=== PATIENT | male | born 1940 | race Caucasian/White ===

== ENCOUNTER 2022-12-08 13:31 | Outpatient (REF) | payer MEDICARE, SELFPAY ==
[2022-12-08 13:47] LABS: Appearance Urine Clear; Color Urine Yellow; Glucose Urine UA Negative (Negative); Leukocyte Esterase Urine Trace (Negative); Nitrite Urine Negative (Negative); UMIC TRIGGER UACC YES; Urine Blood Negative (Negative); Urine Ketones Negative (Negative); Urine Protein Trace mg/dL (Neg-Trace)
[2022-12-08 13:50] LABS: Bacteria Urine None Seen (None Seen); Hyaline Casts Urine 0-2 /LPF (0-2); Squamous Epithelial Cell Urine 0-2 /HPF (0-2); WBC Urine 0-5 /HPF (0-5)
== END 2022-12-08 13:32 | disposition home or self-care (01) ==
LOC: HO.HVNA 13:31
PROVIDERS: Visit Provider Internal Medicine
DX: R41.0 Disorientation, unspecified (principal); Z91.81 History of falling
CPT/HCPCS: 81001

== ENCOUNTER 2024-03-14 10:31 | Outpatient (REF) | payer MEDICARE, SELFPAY ==
--- NOTE | ~2024-03-14 | XR_ITS ---
EXAMINATION: XR CHEST CLINICAL INFORMATION: Ongoing cough. Decreased breath sounds at left lung base. COMPARISON: 11/21/2012 TECHNIQUE: 2 views of the chest were obtained. FINDINGS: The lungs are well expanded. The left hemidiaphragm is elevated. Mild central bronchial wall thickening. No focal consolidation. No pleural effusion. Cardiac silhouette is within normal limits. XR/XR chest 2V IMPRESSION: Possible bronchitis. Advise clinical correlation. Chronic elevation of the left hemidiaphragm.
== END 2024-03-14 10:32 | disposition home or self-care (01) ==
LOC: HO.HHCX 10:31
PROVIDERS: Visit Provider Student in an Organized Health Care Education/Training Program
DX: R05.3 Chronic cough (principal)
CPT/HCPCS: 71046

== ENCOUNTER 2024-12-28 09:53 | Outpatient (REF) | payer MEDICARE, SELFPAY ==
--- OUTSIDE RECORDS SUMMARY | 2024-12-28 10:34 | XMS_ITS | Encounter Summary ---
Author Organization [employer] Address [address] [facility] [address] [place] [address] Care Team Providers Care Muck Operator Name Role Phone Jodi Zuniga MD Primary Care Provide r Reason for Visit * Reason Onset Date Comments Nurse Triage 07/14/2023 Encounter Details Date Type Department Care Team (Late st Contact Info) Description 07/14/2023 Telephone [facility] MEDICINE [address] [place], [place] [phone] Jodi Zuniga MD [address] [place] [address] Nurse Triage Social History Tobacco Use Types Packs/Day Years Used Date Smoking Tobacco: Never Passive Smoke Exposure: Never Smokeless Tobacco: Never Depression Answer Date Recorded Patient Health Questionnaire-9 Score 0 03/17/2023 Depression Answer Date Recorded Patient Health Questionnaire-2 Score 0 03/17/2023 Sex and Gender Information Value Date Recorded Sex Assigned at Male 09/06/2022 10:18 AM EDT Legal Sex Male 10:18 AM EDT Gender Identity Male 09/06/2022 10:18 AM EDT Sexual Orientation Don't know 09/06/2022 10 :18 AM EDT documented as of this encounter Miscellaneous Notes * Telephone Encounter - Genesis Dunn RN - 07/14/2023 11:37 AM EDT Call to [facility] for second attempt triage call. No answer, LVM to return call to [facility] triage line. . * Telephone Encounter - Genesis Dunn RN - 07/14/2023 11:02 AM EDT Call returned to [facility] for triage. No answer LVM to return call to [facility] triage line [phone]. * Telephone Encounter - Lavinia Amezquita - 07/14/2023 10:48 AM EDT Symptom: Urine Symptoms Outcome: Schedule a same-day appointment or talk to a nurse or provider today Reason: Caller denied all higher acuity questions The caller accepted this outcome documented in this encounter Plan of Treatment Not on file documented as of this encounter Visit Diagnoses Not on filedocumented in this encounter Additional Health Concerns Assessment Noted Time PHQ-9 Depression Total Score: 0 03/17/20 23 3:07 PM EDT documented as of this encounter Care Teams Muck Operator Relationship Specialty Start Date End Date Jodi Zuniga MD [address] [place] [id number] PCP - General Family Medicine 06/04/19 documented as of this encounter
--- OUTSIDE RECORDS SUMMARY | 2024-12-28 10:34 | XMS_ITS | Clinical Summary ---
Author Organization [facility] Address [address] [place] [address] Phone Care Team Providers Care Report Checker Name Role Phone Jodi Zuniga MD Primary Care Provide r Allergies Active Allergy Reactions Criticality Noted Date Comments Mirtazapine 07/22/2022 ANXIETY Medications famotidine (PEPCID) 20 MG tablet Take 20 mg by mouth in the morning and 20 mg in the evening. Active citalopram (CeleXA) 20 MG tablet Take 20 mg by mouth 1 (one) time each day Active pravastatin (PRAVACHOL) 40 MG tablet Take 40 mg by mouth 1 (one) time each day Active isosorbide mononitrate (ISMO,MONOKET) 20 MG tablet Take 20 mg by mouth in the morning and 20 mg in the evening. Active folic acid (FOLVITE) 1 MG tablet Take 1 mg by mouth 1 (one) time each day Active aspirin (ST SHANTA) 81 MG EC tablet Take 81 mg by mouth 1 (one) time each day Active risperiDONE (RisperDAL) 0.5 MG tablet Take 0.5 mg by mouth in the morning and 0.5 mg in the evening. Active melatonin 3 MG tablet RICH 2 TABLETAS POR LA BOCA CADA RASHID A LA HORA DE DORMIR 3 Active cholecalciferol (VITAMIN D-3) 50 MCG (1999 UT) capsule RICH 1 CAPSULA POR LA BOCA CADA RASHID 3 Active Calcium-Vitamin D 500 MG tablet RICH 1 TABLETA POR LA BOCA JOSHUA VEZ AL RASHID 3 Active Multiple Vitamins-Mineral s (Multivitamin Adults 50+) tablet RICH 1 TABLETA POR LA BOCA CADA RASHID 3 Active traZODone (DESYREL) 50 MG tablet RICH 1/2 (MEDIA) TABLETA POR LA BOCA SACHIN VECES AL RASHID 3 Active levocetirizine (XYZAL) 5 MG tablet RICH 1 TABLETA POR LA BOCA CADA RASHID EN LA NOCHE 3 Active Active Problems Problem Noted Date Diagnosed Date Acute nontraumatic kidney injury 10/04/2022 Abdominal pain 10/04/2022 Hyperlipidemia 10/04/2022 Elevated prostate specific antigen (PSA) 022 Benign prostatic hyperplasia 10/04/2022 Overview (10/04/2022): associated with nocturia and has urinary frequency Stage 3a chronic kidney disease 10/04/2022 Immunizations Name Administration Dates Next Due Influenza, Unspecified 10/20/2022,2020,09/14/2019,10/19/2017 ,09/18/2015,07/23/2014 Pfizer SARS-COV-2 02/11/2021,01/21/2021 Pneumococcal Conjugate 13-Valent 05/19/2017 Pneumococcal Polysaccharide 02/07/2008 Tdap 05/19/2017 Zoster 05/19/2017 Family History Relation Status Comments Father Mother Social History Tobacco Use Types Packs/Day Years Used Date Smoking Tobacco: Former Cigarettes Tobacco Cessation:Counseling Given: Not Answered Alcohol Use Standard Drinks/Week Comments No 0 (1 standard drink = 0.6 oz pur e alcohol) Sex and Gender Information Value Date Recorded Sex Assigned at Not on file Legal Sex Male 10:08 AM EST Gender Identity Not on file Sexual Orientation Not on file Last Filed Vital Signs Vital Sign Reading Time Taken Comments Blood Pressure 113/62 07/26/2023 1:50 PM EDT Pulse 63 07/26/2023 1:50 PM EDT Temperature - - Respiratory Rate 16 12/02/2017 12:00 PM EST Oxygen Saturation 97% 07/26/2023 1:50 PM EDT Inhaled Oxygen Concentration - - Weight 72.6 kg (160 lb) 07/26/2023 1:50 PM EDT Height 167.6 cm (5' 6 ) 12/02/2017 12:00 PM EST Body Mass Index 25.82 12/02/2017 12:00 PM EST Plan of Treatment Health Maintenance Due Date Last Done Comments Influenza Vaccine (#1) 2024 2, 10/06/2021, 09/14/2019, Additional history exists Pneumococcal Vaccine: 65+ Years Completed 05/19/2017, 02/07/2008 Hepatitis B Vaccine Aged Out No longe r eligible based on patient's age to complete this topic Insurance DUAL SNP ([id number]) [place] [address] Care Teams Report Checker Relationship Specialty Start Date End Date Barciona Diallo, Michelle, MD [address] [place] [phone] PCP - General Internal Medicine 06/07/22
--- OUTSIDE RECORDS SUMMARY | 2024-12-28 10:34 | XMS_ITS | Encounter Summary ---
Author Organization [employer] Address [address] [facility] [address] [place] [address] Care Team Providers Care Technical Training Specialist Name Role Phone Jodi Zuniga MD Primary Care Provide r Reason for Visit * Reason Comments Med Refill Encounter Details Date Type Department Care Team ([facility] st Contact Info) Description 04/06/2023 Refill [facility] MEDICINE 230 [place], [place] [phone] Tamika Ya MD [address] [place], [place] [phone] Dementia with other behavioral disturbance, unspecified dementia severity, unspecified dementia type (CMS/HCC) Social History Tobacco Use Types Packs/Day Years [...] Don't know 09/06/2022 10 :18 AM EDT COVID-19 Exposure Response Date Recorded In the last 10 days, have yo u been in contact with someone who was confirmed or suspected to have Coronavirus/COVID-19? No / Unsure 03/17/2023 2:53 PM EDT documented as of this encounter Plan of Treatment Not on file documented as of this encounter Visit Diagnoses Diagnosis Dementia with other behavioral disturbance, unspecified dementia severity, unspecified dementia type (CMS/HCC) documented in this encounter Additional Health Concerns Assessment Noted Time PHQ-9 Depression Total Score: 0 03/17/20 23 3:07 PM EDT documented as of this encounter Care Teams Technical Training Specialist Relationship Specialty Start Date End Date Jodi Zuniga MD [address] [place] [address] PCP - General Family Medicine 06/04/19 documented as of this encounter
--- OUTSIDE RECORDS SUMMARY | 2024-12-28 10:34 | XMS_ITS | Encounter Summary ---
Author Organization [facility] Address [address] [place] [address] Phone Care Team Providers Care Tier Lift Operator Name Role Phone Jodi Zuniga MD Primary Care Provide r Encounter Details Date Type Department Care Team (Late st Contact Info) Description 10/04/2022 Documentation Only [facility], [address] [place] [address] Vivi Gar [address] [place] [phone] Social History Tobacco Use Types Packs/Day Years Used Date Smoking Tobacco: Former Cigarettes Alcohol Use Standard Drinks/Week Comments No 0 (1 standard drink = 0.6 oz pur e alcohol) Sex and Gender Information Value Date Recorded Sex Assigned at Not on file Legal Sex Male 10:08 AM EST Gender Identity Not on file Sexual Orientation Not on file documented as of this encounter Plan of Treatment Not on file documented as of this encounter Visit Diagnoses Not on filedocumented in this encounter Care Teams Tier Lift Operator Relationship Specialty Start Date End Date Jodi Zuniga MD [address] [place] [phone] PCP - General Internal Medicine 06/07/22 documented as of this encounter
--- OUTSIDE RECORDS SUMMARY | 2024-12-28 10:34 | XMS_ITS | Encounter Summary ---
Author Organization [email or web address] Address [address] [facility] 7t [place] [address] Care Team Providers Care Curator Of Photography And Prints Name Role Phone Jodi Zuniga MD Primary Care Provide r Reason for Visit * Reason Onset Date Comments Durable Medical Equipment 08/26/2023 Encounter Details Date Type Department Care Team (Late st Contact Info) Description 08/26/2023 Telephone [facility] MEDICINE [address] [place], [place] [phone] Jodi Zuniga MD [address] [place], [place] [phone] Durable Medical Equipment Social History Tobacco Use Types Packs/Day Years Used Date Smoking Tobacco: Never Passive Smoke Exposure: Never Smokeless Tobacco: Never Depression Answer Date Recorded Patient Health Questionnaire-9 Score 0 03/17/2023 Housing Stability Answer Date Recorded What is your housing situation today? I have janellshai garza 08/24/[address] you li ve. Do you have problems with any of the following? None of the above 08/24/2023 Food Insecurity Answer Date Recorded Within the past 12 months, y ou worried that your food would run out before you got money to buy more: Never True 08/24/2023 Within the past 12 months,th e food you bought just didn't last and you didn't have enough money to get more: Never True Transportation Answer Date Recorded In the past 12 months, has l ack of transportation kept you from medical appts, meetings, work or from getting things needed for daily living? No 08/24/2023 Utilities Answer Date Recorded In the past 12 months, has t he electric, gas, oil or water company threatened to shut off services in your home? No 08/24/2023 Depression Answer Date Recorded Patient Health Questionnaire-2 Score 0 03/17/2023 Sex and Gender Information Value Date Recorded Sex Assigned at Male 09/06/2022 10:18 AM EDT Legal Sex Male 10:18 AM EDT Gender Identity Male 09/06/2022 10:18 AM EDT Sexual Orientation Don't know 09/06/2022 10 :18 AM EDT documented as of this encounter Miscellaneous Notes * Telephone Encounter - Georgia Florian - 09/02/2023 10:44 AM EDT DME GENERATED WILL BE PLACED AT DESK FOR SIGNATURE. * Telephone Encounter - Georgia Florian - 08/30/2023 9:14 AM EDT READ MESSAGE BELOW PLEASE ADVICE. * Telephone Encounter - Danna Sloan - 08/26/2023 1:21 PM EDT Tc from Jose Roberto with [facility] requesting a script for ensures (vanilla) 3x a day will 12 refills to be faxed to [phone]. Any questions, contact Jose Roberto at [phone] ext [phone] documented in this encounter Plan of Treatment Not on file documented as of this encounter Visit Diagnoses Not on filedocumented in this encounter Additional Health Concerns Assessment Noted Time PHQ-9 Depression Total Score: 0 03/17/20 23 3:07 PM EDT documented as of this encounter Care Teams Curator Of Photography And Prints Relationship Specialty Start Date End Date Jodi Zuniga MD [address] [place] [address] PCP - General Family Medicine 06/04/19 documented as of this encounter
--- OUTSIDE RECORDS SUMMARY | 2024-12-28 10:34 | XMS_ITS | Encounter Summary ---
Author Organization [facility] Address [address] [place] [address] Phone Care Team Providers Care Security Assurance Analyst Name Role Phone Jodi Zuniga MD Primary Care Provide r Encounter Details Date Type Department Care Team (Late st Contact Info) Description 06/07/2022 Documentation Only [facility], [address] [place] [phone] Jodi Zuniga MD [address] [phone] Social History Tobacco Use Types Packs/Day Years Used Date Smoking Tobacco: Never Alcohol Use Standard Drinks/Week Comments No 0 [...] on filedocumented in this encounter Care Teams Security Assurance Analyst Relationship Specialty Start Date End Date Jodi Zuniga MD [address] [phone] PCP - General Internal Medicine 06/07/22 documented as of this encounter
--- OUTSIDE RECORDS SUMMARY | 2024-12-28 10:35 | XMS_ITS | Encounter Summary ---
Author Organization [employer] Address [address] [facility] 7t [place] [address] Care Team Providers Care Water Resources Project Manager Name Role Phone Jodi Zuniga MD Primary Care Provide r Reason for Visit * Reason Onset Date Comments Hospital Follow-up 09/26/2024 Encounter Details Date Type Department Care Team ([facility] st Contact Info) Description 09/26/2024 Telephone [facility] MEDICINE [address] [place], [place] [phone] Jodi Zuniga MD [address] [place], [place] [phone] Hospital Follow-up Social History Tobacco Use Types Packs/Day Years Used Date Smoking Tobacco: Never Passive Smoke Exposure: Never Smokeless Tobacco: Never Alcohol Use Standard Drinks/Week Comments Never 0 (1 standard drink = 0.6 oz pur e alcohol) Alcohol Answer Date Recorded Frequency of Alcohol Consumption Not on file 08/21/2024 Average Number of Drinks Not on file 024 Frequency of Binge Drinking Not on file 08/07 Score 0 08/21/2024 Depression Answer Date Recorded Patient Health Questionnaire-9 Score 0 08/21/2024 Patient Health Questionnaire-9 Score 0 08/21/2024 Last PHQ-9: Questionnaire Data Not on file 1 Housing Stability Answer Date Recorded What is your housing situation today? I have janell garza 08/24/[address] you li ve. Do you have problems with any of the following? None of the above 08/24/2023 Food Insecurity Answer Date Recorded Within the past 12 months, y ou worried that your food would run out before you got money to buy more: Sometimes True 2023 Within the past 12 months,th e food you bought just didn't last and you didn't have enough money to get more: Sometimes True 12/12/2023 Transportation Answer Date Recorded In the past [...] Date Recorded Patient Health Questionnaire-2 Score 0 08/21/2024 Sex and Gender Information Value Date Recorded Sex Assigned at Male 09/06/2022 10:18 AM EDT Legal Sex Male 10:18 AM EDT Gender Identity Male 09/06/2022 10:18 AM EDT Sexual Orientation Don't know 09/06/2022 10 :18 AM EDT documented as of this encounter Miscellaneous Notes * Telephone Encounter - Antonio Banks - 09/26/2024 3:00 PM EST Tc from pt requesting a HDF appt. Hospital: [facility] Date of admission: 09/21/24 Discharge date: 09/23/24 Diagnosed: Chest Pain *Send message to [place] Clinical Care Coordinators documented in this encounter Plan of Treatment Not on file documented as of this encounter Visit Diagnoses Not on filedocumented in this encounter Additional Health Concerns Assessment Noted Time PHQ-9 Depression Total Score: 0 08/21/20 9:30 AM EDT documented as of this encounter Care Teams Water Resources Project Manager Relationship Specialty Start Date End Date Jodi Zuniga MD [address] [place] [id number] PCP - General Family Medicine 06/04/19 documented as of this encounter
--- OUTSIDE RECORDS SUMMARY | 2024-12-28 10:35 | XMS_ITS | Encounter Summary ---
Author Organization [employer] Address [address] [facility] 7[address] [place] [address] Care Team Providers Care Rag Cutting Machine Tender Name Role Phone Jodi Zuniga MD Primary Care Provide r Reason for Visit * Reason Comments Med Refill Encounter Details Date Type Department Care Team ([facility] st Contact Info) Description 11/29/[address] [facility] MEDICINE [address] [place], [place] [phone] Jodi Zuniga MD [address] [place], [place] [phone] Low vitamin D level Social History Tobacco Use Types Packs/Day Years [...] AM EDT documented as of this encounter Plan of Treatment Not on file documented as of this encounter Visit Diagnoses Diagnosis Low vitamin D level documented in this encounter Additional Health Concerns Assessment Noted Time PHQ-9 Depression Total Score: 0 08/21/20 24 9:30 AM EDT documented as of this encounter Care Teams Rag Cutting Machine Tender Relationship Specialty Start Date End Date Jodi Zuniga MD [address] [place] [address] PCP - General Family Medicine 06/04/19 documented as of this encounter
--- OUTSIDE RECORDS SUMMARY | 2024-12-28 10:35 | XMS_ITS | Clinical Summary ---
Author Organization [employer] Address 75 [facility] 7t [place] [address] Care Team Providers Care Stitch Bonding Machine Tender Helper Name Role Phone Jodi Zuniga MD Primary Care Provide r Allergies Active Allergy Reactions Criticality Noted Date Comments Mirtazapine Anxiety Low 06/18/2015 Medications acyclovir (Zovirax) 5 % ointmentIndicatio ns:Low vitamin D level apply by topical route every 3 hours 6 times per day to the affected area(s) 30 g 3 12/02/19 23 Active clotrimazole (Lotrimin) 1 % creamIndications: Balanitis Apply topically 2 times daily. 45 g 05/30/20 23 Active Multiple Vitamins-Minerals (Multivitamin Adults 50+) tabletIndications :Coronary artery disease involving stillaguamish coronary artery of stillaguamish heart without angina pectoris RICH 1 TABLETA POR LA BOCA CADA RASHID 90 tablet 1 08/25/20 23 Active pantoprazole (ProtoNix) 40 MG EC tabletIndications :Lower GI bleeding Take 1 tablet (40 mg) by mouth before breakfast. 90 tablet 08/25/20 23 Active folic acid (Folvite) 1 MG tablet TAKE 1 TABLET BY ORAL ROUTE EVERY DAY 30 tablet 3 11/04/20 23 Active ipratropium (Atrovent) 17 MCG/ACT inhalerIndication s:Chronic cough Inhale 2 puffs in the morning, at noon, and at bedtime. 12.9 g 1 03/14/20 24 025 Active ALPRAZolam (Xanax) 2 MG tabletIndications :Generalized anxiety disorder RICH 1 TABLETA POR LA BOCA DOS VECES AL RASHID CUANDO SEA NECESARIO PARA EL SUENO/LA ANSIEDAD/ FALTA DE ALIENTO/RESP IRACION CORTA 56 tablet 08/21/20 24 Active traZODone (Desyrel) 50 MG tabletIndications :Dementia with other behavioral disturbance, unspecified dementia severity, unspecified dementia type (CMS/HCC) RICH 1/2 (MEDIA) TABLETA POR LA BOCA SACHIN VECES AL RASHID 45 tablet 2 08/27/20 24 Active melatonin 3 MG tabletIndications :Dementia with other behavioral disturbance, unspecified dementia severity, unspecified dementia type (CMS/HCC) RICH 2 TABLETAS POR LA BOCA A LA HORA DE DORMIR 60 tablet 3 09/20/20 24 Active aspirin 81 MG chewable tablet Chew 1 tablet Once per day. Active isosorbide mononitrate 10 MG tablet Take 1 tablet by mouth 2 times daily. Active citalopram (CeleXA) 20 MG tabletIndications :Major depressive disorder with current active episode, unspecified depression episode severity, unspecified whether recurrent TAKE 1 TABLET BY MOUTH EVERY MORING 30 tablet 5 10/30/20 24 Active cholecalciferol VITAMIN D (Vitamin D-3) 50 MCG (2000 UT) capsuleIndication s:Low vitamin D level TAKE 1 CAPSULE BY MOUTH EVERYDAY 30 capsule 5 10/30/20 24 Active tamsulosin (Flomax) 0.4 MG 24 hr capsule TAKE 1 CAPSULE BY MOUTH EVERY DAY 30 capsule 5 10/30/20 24 Active pravastatin (Pravachol) 40 MG tabletIndications :Mixed hyperlipidemia TAKE 1 TABLET BY MOUTH EVERY MORNING 90 tablet 1 11/22/19 25 Active Calcium+D3 500-10 MG-MCG tabletIndications :Low vitamin D level RICH 1 TABLETA POR LA BOCA CADA RASHID 90 tablet 1 11/29/19 25 Active risperiDONE (RisperDAL M-TAB) 1 MG disintegrating tabletIndications :Dementia with other behavioral disturbance, unspecified dementia severity, unspecified dementia type (CMS/HCC) DISOLVER 1 TABLETA DEBAJO DE LA LENGUA POR LA BOCA A LA HORA DE DORMIR 30 tablet 2 11/29/19 25 Active polycarbophil (FiberCon) 625 MG tabletIndications :Other constipation Take 1 tablet (625 mg) by mouth in the morning. 30 tablet 11 12/15/19 24 025 Calcium Carb-Cholecalcife rol (Calcium+D3) 500-10 MG-MCG tabletIndications :Low vitamin D level Take 1 tablet by mouth Once per day. TAKE 1 TABLET BY MOUTH EVERY DAY 90 tablet 1 05/07/20 24 025 Discontinued risperiDONE (RisperDAL M-TAB) 1 MG disintegrating tabletIndications :Dementia with other behavioral disturbance, unspecified dementia severity, unspecified dementia type (CMS/HCC) DISOLVER 1 TABLETA DEBAJO DE LA LENGUA POR LA BOCA A LA HORA DE DORMIR 30 tablet 2 08/27/20 24 025 Discontinued Active Problems Problem Noted Date Diagnosed Date Encounter for hearing evaluation 12/28/2024 Tremors of nervous system 12/28/2024 Bilateral leg pain 08/21/2024 Problems with swallowing 08/21/2024 Assessment & Plan (08/21/2024 10:54 AM EDT): I will order barium swallow and refer to speech and swallow Microaspiration can cause cough and even cause pneumonia Chronic cough 03/14/2024 Assessment & Plan (03/14/2024 1:24 PM EDT): Today here COVID/Flu/strep neg All meds Confirmed w daugther today Pt w chronic cough for at least 6 months ,seems unchanged per daughter From examination , pt has decrease breast sounds in left lung at base ,otherwise no other relevant findings Pt has hx of tobacco smoker and per chart hx of COPD Pt seems to have chronic bronchitis symptoms-COPD ,already received ATB so will hold on more for now -referred for CXR today -----reports came back this afternoon --The lungs are well expanded. The left hemidiaphragm is elevated. Mild central bronchial wall thickening. No focal consolidation. No pleural effusion. Cardiac silhouette is within normal limits. Possible bronchitis. Advise clinical correlation. Chronic elevation of the left hemidiaphragm. ---I tried calling number in system but no answer , request staff mine warfare officer to call daughter to inform of findings and to make sure pt f up w his PCP for noted reported as chronic elevated left hemidiaphragm to have that evaluated -referred today for PFT-to [facility] per daugther request -mucinex BID -trial w Atrovent -f PCP in 4 weeks to monitor symptoms ,tests referred today Long toenail 03/14/2024 Assessment & Plan (03/14/2024 1:21 PM EDT): Daughter request custom harvester referral for foot care and cut nails for long toenails -referred today Pruritus 12/15/2023 Dry cough 12/15/2023 Encounter for preventive health examination 06/2024 Assessment & Plan (12/15/2023 5:27 PM EST): See HPI Lower GI bleeding 05/30/2023 Hospital discharge follow-up 05/30/2023 Balanitis 05/30/2023 Other constipation 05/30/2023 Low vision 05/30/2023 Generalized abdominal pain 03/17/2023 Agitation due to dementia 03/17/2023 BPH with obstruction/lower urinary tract symptom s 03/17/2023 Benign prostatic hyperplasia with urinary freque ncy 03/17/2023 Chronic pain 03/17/2023 Coronary arteriosclerosis 03/17/2023 Dementia with behavioral disturbance 03/17/2023 Assessment & Plan (03/17/2023 4:47 PM EDT): Patient is being follow by neurology Family and patient guided about nature of his condition Forgetfulness 03/17/2023 Pain in eye 03/17/2023 Pain, joint, knee, left 03/17/2023 Stage 3b chronic kidney disease (CKD) 03/17/2023 Assessment & Plan (03/17/2023 4:47 PM EDT): Continue to follow with nephrology Iron deficiency anemia 03/17/2023 Assessment & Plan (03/17/2023 4:48 PM EDT): CBC will be check with labs Advanced directives, counseling/discussion 03/17 Assessment & Plan (03/17/2023 4:50 PM EDT): Today official for done, health care proxy wishes for patient to be full code, yes to CPR and intubation Bilateral cataracts 03/26/2019 Coronary artery disease invo lving stillaguamish coronary artery of stillaguamish heart without angina pectoris 03/26/2019 Seborrheic dermatitis 03/26/2019 BPH associated with nocturia 03/01/2019 Abnormal gait 02/09/2019 Assessment & Plan (08/21/2024 10:52 AM EDT): I will set up patient for VNA services for physical therapy at home Intention tremor 02/09/2019 Tubular adenoma of colon 01/20/2018 Chronic nonspecific colitis 11/25/2017 Chronic kidney disease 07/18/2017 Insomnia 07/18/2017 Neck pain 07/18/2017 Recurrent deep vein thrombosis 05/19/2017 Cervical spondylosis 05/06/2017 Chronic constipation 04/13/2017 Dizziness 04/13/2017 Recurrent major depressive episodes, moderate 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 Impairment of balance 03/15/2017 Incontinence of feces 02/28/2017 Aortic valve regurgitation 02/23/2017 Generalized anxiety disorder 02/23/2017 Assessment & Plan (08/21/2024 10:53 AM EDT): I explain to family patient should take alprazolam as prescribed, abstinence can be dangerous and affect patients mood/behavior and can even trigger seizures Hyperlipidemia 02/23/2017 Chronic obstructive lung disease 10/19/2012 Assessment & Plan (08/21/2024 10:51 AM EDT): Im going to refer patient to pulmonology for further evaluation Raised prostate specific antigen 10/19/2012 Encounters Date Type Department Care Team Description 12/28/2024 9:00 AM EST Office Visit [address] [address] Jodi Zuniga MD Problems with swallowing (Primary Dx); Dementia with behavioral disturbance (CMS/HCC); Encounter for hearing examination, unspecified whether abnormal findings; Abnormal gait; Tremors of nervous system 12/28/2024 Travel 12/20/[address] [address] Jodi Zuniga MD Chart Prep 12/13/2024 Patient Outreach [address] [address] Jodi Zuniga MD Pre-visit Planning ((Unable to reach for PVP screening, LVM)) 11/29/2024 Refill [facility] [address] [place] [address] Jodi Zuniga MD Low vitamin D level 11/29/2024 Refill [facility] [address] [place] [address] Jodi Zuniga MD Low vitamin D level; Dementia with other behavioral disturbance, unspecified dementia severity, unspecified dementia type (CMS/[facility]) 11/22/2024 Refill [facility] [address] [place] [address] Jodi Zuniga MD Mixed hyperlipidemia 11/12/2024 Telephone [facility] [address] [place] [address] Rickey Diamond DDS 11/06/2024 Telephone [facility] [address] [place] [address] Jodi Zuniga MD follow up needed 10/29/2024 Refill [facility] [address] [place] [address] Jodi Zuniga MD Major depressive disorder with current active episode, unspecified depression episode severity, unspecified whether recurrent; Low vitamin D level 10/11/2024 Orders Only [facility] [address] [place] [address] Provider, MD Yen from Last 3 Months Immunizations Name Administration Dates Next Due Influenza High-dose Quadrivalent Preservative Fr ee 10/20/2022 Influenza injectable quadriv alent IIV4 with preservative 10/19/2017,09/18/2015 Influenza injectable quadrivalent preservative f ree 12/15/2023,10/06/2021 Influenza, High Dose Seasonal, Preservative Free 08/21/2024,09/14/2019 Influenza, IIV3, injectable 07/23/2014 Influenza, Split (incl. purified surface antigen ) 08/22/2013 Pfizer Covid-19 Vaccine 12+ 08/21/2024, Pneumococcal Conjugate PCV 13 05/19/2017 Pneumococcal Polysaccharide PPSV23 02/07/2008 Tdap 05/19/2017 Zoster, live 05/19/2017 Social History Tobacco Use Types Packs/Day Years Used Date Smoking Tobacco: Never Passive Smoke Exposure: Never Smokeless Tobacco: Never Tobacco Cessation:Counseling Given: Not Answered Alcohol Use Standard Drinks/Week Comments Never 0 [...] Don't know 09/06/2022 10 :18 AM EDT Last Filed Vital Signs Vital Sign Reading Time Taken Comments Blood Pressure 127/72 12/28/2024 9:26 AM EST Pulse 77 12/28/2024 9:20 AM EST Temperature 35.9 ??C (96.6 ??F) 12/28/2024 9:20 AM ES T Respiratory Rate 20 12/28/2024 9:20 AM EST Oxygen Saturation 98% 12/28/2024 9:20 AM EST Inhaled Oxygen Concentration - - Weight 78.6 kg (173 lb 3.2 oz) 12/28/2024 9:20 A M EST Height 167.6 cm (5' 6 ) 12/28/2024 9:20 AM EST Body Mass Index 27.96 12/28/2024 9:20 AM EST Plan of Treatment Health Maintenance Due Date Last Done Comments Dental Prophylaxis 1940 Dental X-Ray: Bitewings 1940 Dental Oral Exam 01/31/2016 08/01/2015 RSV Patients and Patients Aged 60 years or older (1 - 1-dose 75+ series) 2017 Zoster Vaccines (2 of 3) 07/14/2017 05/19/2017 Dental X-Ray: Full Mouth 08/02/2018 08/01/2015 SDOH Screening 12/12/2024 12/12/2023 Alcohol/Substance Use Screening 08/21/2025 08/21/2024 Depression Screening 08/21/2025 08/21/2024, 08/21/20 Tobacco Screening 12/28/2025 12/28/2024 Lipid Panel 10/06/2026 10/06/2021 DTaP/Tdap/Td Vaccines (2 - Td or Tdap) 05/19/2027 05/19/2017 Pneumococcal Vaccine: 50+ Years Completed 05/19/2017, 02/07/2008 COVID-19 Vaccine Completed 08/21/2024, 06/2024, 02/11/2021, Additional history exists Influenza Vaccine Completed 08/21/2024, , 10/20/2022, Additional history exists HIB Vaccines Aged Out No longer eligi ble based on patient's age to complete this topic HPV Vaccines Aged Out No longer eligi ble based on patient's age to complete this topic Hepatitis A Vaccines Aged Out No long er eligible based on patient's age to complete this topic Hepatitis B Vaccines Aged Out No long er eligible based on patient's age to complete this topic IPV Vaccines Aged Out No longer eligi ble based on patient's age to complete this topic Meningococcal Vaccine Aged Out No ana slim eligible based on patient's age to complete this topic RSV under 20 months Aged Out No longe r eligible based on patient's age to complete this topic Rotavirus Vaccines Aged Out No longer eligible based on patient's age to complete this topic Procedures Procedure Name Priority Date/Time Associated Diagnosis Comments CT CHEST WO CONTRAST Routine 10/11/2024 1:57 PM EST LIPID PANEL, STANDARD Routine 10/06/2021 4:51 PM EST PANORAMIC RADIOGRAPHIC IMAGE Routine 08/01/2015 12:00 AM EDT COMPREHENSIVE ORAL EVALUATION - NEW OR ESTABLISHED PATIENT Routine 08/01/2015 12:00 AM EDT from Last 3 Months or Most Recently Relevant to Health Maintenance Results * CT Chest w/o Contrast (10/11/2024 1:57 PM EST) Anatomical Region Laterality Modality Body, Chest Computed Tomogra phy us Historical Provider MD [place] PROCEDURES Final R esult * LIPID PANEL, STANDARD (10/06/2021 4:51 PM EST) Chol/HDLC Ratio 2.7 <5.0 (calc) [facility] Cholesterol, Total 149 <200 mg/dL [facility] HDL Cholesterol 55 > OR = 40 mg/dL [facility] LDL Cholesterol 79 mg/dL (calc) [facility] Comment: Reference range: <100 ?? Desirable range <100 mg/dL for primary prevention; ?? <70 mg/dL for patients with CHD or diabetic patients ?? with > or = 2 CHD risk factors. ?? LDL-C is now calculated using the Jose Roberto ?? calculation, which is a validated novel method providing ?? better accuracy than the Friedewald equation in the ?? estimation of LDL-C. ?? Azeem CARD et al. LILIA. 2013;310(19): 7074-4214 ?? (http://Fixed [employer]/faq/AKI487) Non-HDL Cholesterol 94 <130 mg/dL (calc) [facility] Comment: For patients with diabetes plus 1 major ASCVD risk ?? factor, treating to a non-HDL-C goal of <100 mg/dL ?? (LDL-C of <70 mg/dL) is considered a therapeutic ?? option. Triglycerides 74 <150 mg/dL [facility] 10/06/2021 4:51 PM EST Jodi Diallo MD LAB BLOOD ORDERABLES Final Result [facility] [address] [place] [address], from Last 3 Months or Most Recently Relevant to Health Maintenance Insurance DENTAL - [facility] Advance Directives Documents on File Type Date Recorded Patient Carburetor Rebuilder Expl anation Advance Directives and Livin g Will 10/18/2023 Health Care Proxy Advance Directives and Livin g Will 10/14/2023 [facility] HealthCare Proxy 04/13/2023 Proxy Care Teams Stitch Bonding Machine Tender Helper Relationship Specialty Start Date End Date Jodi Zuniga MD [address] [place] [id number] PCP - General Family Medicine 06/04/19
--- OUTSIDE RECORDS SUMMARY | 2024-12-28 10:35 | XMS_ITS | Encounter Summary ---
Author Organization [employer] Address [address] [facility] 7t [place] [address] Care Team Providers Care Crm Dynamics Developer Name Role Phone Jodi Zuniga MD Primary Care Provide r Reason for Visit * Reason Comments Med Refill Encounter Details Date Type Department Care Team ([facility] st Contact Info) Description 11/29/2024 Refill [facility] [address] [place], [place] [phone] Jodi Zuniga MD [address] [place], [place] [phone] Low vitamin D level; Dementia with other [...] Visit Diagnoses Diagnosis Low vitamin D level Dementia with other behavioral disturbance, unspecified dementia severity, unspecified dementia type (CMS/HCC) documented in this encounter Additional Health Concerns Assessment Noted Time PHQ-9 Depression Total Score: 0 08/21/20 24 9:30 AM EDT documented as of this encounter Care Teams Crm Dynamics Developer Relationship Specialty Start Date End Date Jodi Zuniga MD [address] [place] [address] PCP - General Family Medicine 06/04/19 documented as of this encounter
--- OUTSIDE RECORDS SUMMARY | 2024-12-28 10:35 | XMS_ITS | Encounter Summary ---
Author Organization [employer] Address [address] [facility] 7t [place] [address] Care Team Providers Care School Lunch Manager Name Role Phone Jodi Zuniga MD Primary Care Provide r Reason for Visit * Reason Comments Pre-visit Planning (Unable to reach for PVP screening, LVM) Encounter Details Date Type Department Care Team ([facility] st Contact Info) Description 12/13/2024 Patient Outreach [facility] [address] [place], [place] [phone] Jodi Zuniga MD [address] [place], [place] [phone] Pre-visit Planning ((Unable to reach for PVP screening, LVM)) Social History Tobacco Use Types Packs/Day Years [...] AM EDT documented as of this encounter Progress Notes * Yesy Amezquita - 12/13/2024 2:22 PM EST CC Yesy. Placed outbound call to patient to complete pre-visit planning. No answer at this time. Patient name and were not confirmed. CC left voicemail requesting return call. Direct contact information provided. documented in this encounter Plan of Treatment Not on file documented as of this encounter Visit Diagnoses Not on filedocumented in this encounter Additional Health Concerns Assessment Noted Time PHQ-9 Depression Total Score: 0 08/21/20 24 9:30 AM EDT documented as of this encounter Care Teams School Lunch Manager Relationship Specialty Start Date End Date Jodi Zuniga MD [address] [place] [id number] PCP - General Family Medicine 06/04/19 documented as of this encounter
--- OUTSIDE RECORDS SUMMARY | 2024-12-28 10:35 | XMS_ITS | Encounter Summary ---
Author Organization [employer] Address [address] [facility] [address] [place] [address] Care Team Providers Care Piano Maker Name Role Phone Jodi Zuniga MD Primary Care Provide r Reason for Referral * Consultation (Routine) - Pending Review Specialty Diagnoses / Procedures Referred By Ludmila pena Referred To Contact Audiology Diagnoses Encounter for hearing examination, unspecified whether abnormal findings Jodi Zuniga MD [address] [place] [address] Phone: tel: fax: Referral ID Status Reason Start Date Expiration Date Visits Requested Visits Authorized [id number] Pending Review Specialty Services Required 12/28/2024 12/28/2025 1 1 * Imaging (Routine) - Pending Review Specialty Diagnoses / Procedures Referred By Ludmila pena Referred To Contact Radiology Diagnoses Problems with swallowing Dementia with behavioral disturbance (CMS/HCC) Procedures FL Esophagus Barium Swallow Jodi Zuniga MD [address] [place] [address] Phone: tel: fax: Referral ID Status Reason Start Date Expiration Date Visits Requested Visits Authorized [id number] Pending Review Perform Procedure 12/28/2024 12/28/2025 1 1 Encounter Details Date Type Department Care Team (Late st Contact Info) Description 12/28/2024 9:00 AM EST Office Visit [facility] [address] [place] [address] Jodi Zuniga MD [address] [place] [address] Problems with swallowing (Primary Dx); Dementia with behavioral disturbance (CMS/HCC); Encounter for hearing examination, unspecified whether abnormal findings; Abnormal gait; Tremors of nervous system Social History Tobacco Use Types Packs/Day Years [...] AM EDT documented as of this encounter Last Filed Vital Signs Vital Sign Reading [...] Mass Index 27.96 12/28/2024 9:20 AM EST documented in this encounter Plan of Treatment Scheduled Orders Name Type Priority Associated Diagnoses Orde r Schedule FL Esophagus Barium Swallow Imaging Routine Problems with swallowing Dementia with behavioral disturbance (CMS/HCC) Expected: 12/28/2024, Expires: 12/28/2025 Comprehensive Metabolic Panel Lab Routine Dementia with behavioral disturbance (CMS/HCC) Expected: 12/28/2024 (Approximate), Expires: 12/28/2025 CBC auto differential Lab Routine Dementia with behavioral disturbance (CMS/HCC) Expected: 12/28/2024 (Approximate), Expires: 12/28/2025 Lipid Panel, Standard Lab Routine Dementia with behavioral disturbance (CMS/HCC) Expected: 12/28/2024 (Approximate), Expires: 12/28/2025 Vitamin B12/Folate, Serum Panel Lab Routine Dementia with behavioral disturbance (CMS/HCC) Expected: 12/28/2024, Expires: 12/28/2025 TSH W/Reflex to FT4 Lab Routine Dementia with behavioral disturbance (CMS/HCC) Expected: 12/28/2024 (Approximate), Expires: 12/28/2025 Hemoglobin A1c Lab Routine Dementia with behavioral disturbance (CMS/HCC) Expected: 12/28/2024 (Approximate), Expires: 12/28/2025 Scheduled Referrals Name Type Priority Associated Diagnoses Orde r Schedule Referral to Audiology Outpatient Referral Routine Encounter for hearing examination, unspecified whether abnormal findings Expected: 12/28/2024 (Approximate), Expires: 12/28/2025 documented as of this encounter Visit Diagnoses Diagnosis Problems with swallowing- Primary Dysphagia, unspecified Dementia with behavioral disturbance ([facility]) Encounter for hearing examination, unspecified whether abnormal findings Abnormal gait Abnormality of gait Tremors of nervous system documented in this encounter Additional Health Concerns Assessment Noted Time PHQ-9 Depression Total Score: 0 08/21/20 24 9:30 AM EDT documented as of this encounter Care Teams Piano Maker Relationship Specialty Start Date End Date Jodi Zuniga MD [address] [place] [address] PCP - General Family Medicine 06/04/19 documented as of this encounter
--- OUTSIDE RECORDS SUMMARY | 2024-12-28 10:35 | XMS_ITS | Encounter Summary ---
Author Organization [employer] Address 75 [facility] 7t [place] [address] Care Team Providers Care Manager Dairy Name Role Phone Jodi Zuniga MD Primary Care Provide r Encounter Details Date Type Department Care Team (Late st Contact Info) Description 10/11/2024 Orders Only [facility] [address] [place] [address] Provider, MD Yen Social History Tobacco Use Types Packs/Day Years [...] on file documented as of this encounter Procedures Procedure Name Priority Date/Time Associated Diagnosis Comments CT CHEST WO CONTRAST Routine 10/11/2024 1:57 PM EST documented in this encounter Results * CT Chest w/o Contrast (10/11/2024 1:57 PM EST) Anatomical Region Laterality Modality Body, Chest Computed Tomogra phy us Historical Provider MD [place] PROCEDURES Final R esult documented in this encounter Visit Diagnoses Not on filedocumented in this encounter Additional Health Concerns Assessment Noted Time PHQ-9 Depression Total Score: 0 08/21/20 24 9:30 AM EDT documented as of this encounter Care Teams Manager Dairy Relationship Specialty Start Date End Date Jodi Zuniga MD [address] [place] [id number] PCP - General Family Medicine 06/04/19 documented as of this encounter
--- OUTSIDE RECORDS SUMMARY | 2024-12-28 10:35 | XMS_ITS | Encounter Summary ---
Author Organization [employer] Address 75 [facility] 7t [place] [address] Care Team Providers Care College Or University Business Manager Name Role Phone Jodi Zuniga MD Primary Care Provide r Encounter Details Date Type Department Care Team (Latest Contact Info) Description 12/28/2024 Travel Social History Tobacco Use Types Packs/Day Years [...] documented as of this encounter Care Teams College Or University Business Manager Relationship Specialty Start Date End Date Jodi Zuniga MD [address] [place] [id number] PCP - General Family Medicine 06/04/19 documented as of this encounter
--- OUTSIDE RECORDS SUMMARY | 2024-12-28 10:35 | XMS_ITS | Encounter Summary ---
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 Name Role Phone Jodi Zuniga MD Primary Care Provide r Reason for Visit * Reason Onset Date Comments Chart Prep 12/20/2024 Encounter Details Date Type Department Care Team ([facility] st Contact Info) Description 12/20/2024 Telephone [facility] [address] [place], [place] [phone] Jodi Zuniga MD [address] [place], [place] [phone] Chart Prep Social History Tobacco Use Types Packs/Day Years [...] encounter Miscellaneous Notes * Telephone Encounter - Andra Duckworth [place] - 12/20/2024 2:30 PM EST Chart Prep Labs: not done Images: done Vaccines due: yes Referrals: Pulmonology Date of service: 08/21/2024, ask patient if he went to [facility] Audiology Screenings: Up to date Overdue care gaps: SDOH, Oral Health documented in this encounter Plan of Treatment Not on file documented as of this encounter Visit Diagnoses Not on filedocumented in this encounter Additional Health Concerns Assessment Noted Time PHQ-9 Depression Total Score: 0 08/21/20 24 9:30 AM EDT documented as of this encounter Care Teams Boat Out[employer] Supervisor Relationship Specialty Start Date End Date Jodi Zuniga MD [address] [facility] [place] [address] PCP - General Family Medicine 06/04/19 documented as of this encounter
--- OUTSIDE RECORDS SUMMARY | 2024-12-28 10:35 | XMS_ITS | Data Portability ---
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 I provided real-time medical direction for this encounter and was immediately available to provide additional phone-based assistance as needed. 82M with mild cough x 2 days, no fever. Pt well appearing, no SOB, no chest pain, no fever, no sick contacts. Vitals stable, respiratory status normal. Pt appears adequately hydrated, no dehydration noted. Negative COVID/Flu. Recommend maintain oral hydration and OTC meds. Patient education and counseling, supportive care, and strict return precautions given. paysola Not available 02/04/2023 11:10:05 05/13/2023 05/13/2023 I have reviewed and agree with the assessment and plan as documented by the senior sales engineer. I provided real-time medical direction for this encounter and was immediately available to provide additional phone-based assistance as needed. 83M with 1 week of urinary symptoms, issue with med compliance. No fever, no flank pain. Vitals signs normal for patient. No findings on examination. U/A reveals negative nitrites and leukocytes. Discussion with family member, patient taking flomax as prescribed most days, but sometimes refuses (~2x/week). They will continue with gentle encouragement. Impression: Pt with urinary symptoms, no distress, non toxic in appearance. Suspect possible UTI, however with negative dip, will send for culture prior to initiating antibiotics. Plan: For urine culture Red flags and return precautions discussed. paysola Not available 05/13/2023 11:32:45 11/18/2023 11/18/2023 I have reviewed and agree with the assessment and plan as documented by the senior sales engineer. I provided real time medical direction for this encounter and was immediately available to provide additional phone based assistance as needed. History as noted by senior sales engineer. Pt with history of dementia, COPD, HTN, and ? GIB. Family called today reporting that pt has had a cough as well as 1 episode of diarrhea this AM. Pt reportedly developed a cough productive of clear/white sputum yesterday. This AM his cough seems improved after Nyquil. Director Of Counseling notes that the pt has not coughed at all while he has concha with the pt. Pt had 1 episode of diarrhea this AM in his brief. No melena or hematochezia. No vomiting. Pt eating and drinking ok but family notes decreased appetite. Pt briefly seemed more confused this AM, but currently at his baseline. No fevers or dyspnea. On exam, pt appears comfortable, not coughing, no distress. Vitals normal. Lungs clear. Abdomen soft, non tender. Rapid Covid and Flu negative. Impression: Pt with likely mild viral URI. Not currently coughing, no SOB or fever. Also with 1 episode of diarrhea in his brief this AM, no evidence of GIB. No vomiting. MS at baseline. Covid and Flu both negative today. Family is told that it pt has viral URI. They will encourage normal po food and fluid intake and are instructed to f/u with pt's primary care team if his symptoms aren't improving or are worsening. Pt's family instructed to seek medical attention right away with any worsening or new symptoms, which are reviewed with them. [email or web address] Not available 11/18/2023 12:26:06 Plan of Treatment Reminders Order Date Submit Date Provider Last Modified By Organization Details Last Modified Time Details Appointments None recorded. Lab rapid flu (A+B) [address] [facility], [address] [place] [address], [place], [phone], 4 12:25:53 rapid SARS CoV 2 Ag, QL IA, respiratory specimen 2023 024 [facility], [address] [place] [address], [id number], 4 12:25:54 rapid strep group A, throat 2023 024 [facility], [address] [place] [address], [id number], 4 12:25:56 rapid flu (A+B) 2023 024 [facility], [address] [place] [address], [id number], 4 12:12:39 rapid SARS CoV 2 Ag, QL IA, respiratory specimen 2023 024 [facility], [address] [place] [address], [id number], 4 12:12:37 culture, urine 2022 023 [facility], [address] [place] [address], [id number], 3 11:26:23 urinalysis, dipstick 2022 023 [facility], [address] [place] [address], [id number], 3 11:34:51 Referral None recorded. Procedures None recorded. Surgeries None recorded. Imaging electrocard iogram 2023 024 [facility], [address] [place] [address], [id number], 4 13:48:11 Medication Orders Flonase Allergy Relief 50 mcg/actuati on nasal spray,suspe nsion 2023 024 [facility] [place], [address], 4 16:33:49 Mucinex 600 mg tablet, extended release 2023 024 [facility], [address] [place], [address], 4 15:03:54 azithromyci n 250 mg tablet 2023 024 [facility], [address] [place], [address], 4 12:37:15 azithromyci n 250 mg tablet 2023 024 [facility], [address] [place], [address], 16:38:06 Patient TargetsNo targets recorded. Patient InstructionsNo instructions recorded. Reason for Referral None Reported. Results Created Date Observation Date Name Description Value Unit Range Abnormal Flag Note LastModifiedBy Organization Detail LastModifiedTime 05/13/2005/13/2023 URINE CULTU RE specimen description URINE Not Available [facility] [address] [place], [address], 05/14/2023 11:26:23 05/13/2005/13/2023 URINE CULTU RE special requests NONE Not Available [facility] [address] [place], [address], 05/14/2023 11:26:23 05/13/2005/14/2023 URINE CULTU RE culture <10,00 0 COL/ML abnormal Not Available [facility] [address] [place], [address], 05/14/2023 11:26:23 05/13/2005/14/2023 URINE CULTU RE report status FINAL 2022 Not Available [facility] [address] [place], [address], 05/14/2023 11:26:23 05/13/2005/13/2023 urina lysis , dipst ick Leukocytes negati ve Not Available [facility] [address] [place] [address], [place], [address], 05/13/2023 11:29:56 05/13/20 23 05/13/2023 urina lysis , dipst ick Nitrite negati ve Not Available Main - [facility] ed [address] [place] [address], [phone], 05/13/2023 11:29:56 05/13/20 23 05/13/2023 urina lysis , dipst ick Protein positi ve Not Available Main - [facility] ed [address] [place] [address], [phone], 05/13/2023 11:29:56 11/18/19 24 11/18/2023 rapid SARS CoV 2 Ag, QL IA, respi rator y speci men rapid SARS CoV 2 Ag, QL IA, respiratory specimen negati ve Not Available [facility] - [facility] ed [address] [place] [address], [phone], 11/18/2023 12:11:27 11/18/19 24 11/18/2023 rapid flu (A+B) Flu negati ve Not Available [facility] - [facility] ed [address] [place] [address], [phone], 11/18/2023 12:11:25 03/01/20 24 03/01/2024 rapid strep group A, throa t Strep negati ve Not Available [facility] - [facility] ed [address] [place] [address], [phone], 03/01/2024 12:25:21 03/01/20 24 03/01/2024 rapid SARS CoV 2 Ag, QL IA, respi rator y speci men rapid SARS CoV 2 Ag, QL IA, respiratory specimen negati ve Not Available [facility] ed [address] [place] [address], [phone], 03/01/2024 12:25:16 03/01/20 24 03/01/2024 rapid flu (A+B) Flu negati ve Not Available [facility] ed [address] [place] [address], [phone], 03/01/2024 12:25:11 03/01/20 24 03/01/2024 carlos dennis am No observ ation record ed. [address], [phone], 03/01/2024 13:48:09 Result Notes None recorded. Procedures Surgical History None recorded. Imaging Results Imaging Date Name Status LastModified by Organization Details LastModified Time 03/01/2024 electrocardiogram completed [address], [id number], 03/01/2024 13:48:09 Procedure Notes None recorded. Medical Equipment None Reported. Medications Name Sig Start Date Stop Date Status Note LastModified by Organization Details LastModified Time calcium+d3 500-10 mg-mcg ta RICH 1 TABLETA POR LA BOCA CADA RASHID active Not Available Not Available No t Available multivitamin adults 50+ tab RICH 1 TABLETA POR LA BOCA CADA RASHID active Not Available Not Available No t Available calcium 500-vit d3 400 tab RICH 1 TABLETA POR LA BOCA JOSHUA VEZ AL RASHID active Not Available Not Available N ot Available vitamin d3 2,000 unit softg RICH 1 CAPSULA POR LA BOCA CADA RASHID active Not Available Not Available No t Available trazodone 50 mg tablet RICH 1/2 (MEDIA) TABLETA POR LA BOCA SACHIN VECES AL RASHID active Not Available Not Available No t Available azithromycin 250 mg tablet RICH 1 TABLETA POR LA BOCA CADA RASHID POR 4 MATIAS active Not Available Not Available N ot Available pravastatin 40 mg tablet RICH 1 TABLETA POR LA BOCA CADA MANANA active Not Available Not Available Not Available isosorbide mononitrate 20 mg tablet RICH 1 TABLETA POR LA BOCA SI TIENE [facility] IND[facility] active Not Available Not Available No t Available citalopram 10 mg tablet RICH 1 TABLETA POR LA BOCA CADA RASHID active Not Available Not Available No t Available meclizine 12.5 mg tablet RICH 2 TABLETAS POR LA BOCA DOS VECES AL RASHID CUANDO SEA NECESARIO active Not Available Not Available No t Available melatonin 3 mg tablet RICH 2 TABLETAS POR LA BOCA CADA RASHID A LA HORA DE DORMIR active Not Available Not Available No t Available citalopram 20 mg tablet RICH 1 TABLETA POR LA BOCA CADA RASHID EN LA MANANA active Not Available Not Available No t Available famotidine 20 mg tablet RICH 1 TABLETA POR LA BOCA DOS VECES AL RASHID active Not Available Not Available No t Available tamsulosin 0.4 mg capsule RICH 1 CAPSULA POR LA BOCA CADA RASHID, MEDIA HORA DESPUES DE LA MISMA COMIDA CADA RASHID active Not Available Not Available No t Available pantoprazole 40 mg tablet,delay ed release RICH 1 TABLETA POR LA BOCA ANTES DEL DESAYUNO active Not Available Not Available No t Available acyclovir 5 % topical ointment APLICAR EN EL AREA AFECTADA DE LA PIEL CADA 3 HORAS (6 VECES AL RASHID) HOSSEIN INDICADO active Not Available Not Available No t Available docusate sodium 100 mg capsule RICH 1 CAPSULA POR LA BOCA DOS VECES AL RASHID POR 10 MATIAS active Not Available Not Available No t Available aspirin 81 mg chewable tablet MASTICAR 1 TABLETA CADA RASHID active Not Available Not Available No t Available folic acid 1 mg tablet RICH 1 TABLETA POR LA BOCA CADA RASHID active Not Available Not Available No t Available hydroxyzine HCl 25 mg tablet RICH 1 TABLETA POR LA BOCA CADA RASHID A LA HORA DE DORMIR CUANDO SEA NECESARIO PARA PICOR active Not Available Not Available N ot Available alprazolam 2 mg tablet RICH 1 TABLETA POR LA BOCA DOS VECES AL RASHID CUANDO SEA NECESARIO PARAEL SUENO/LA ANSIEDAD/ FALTA DE ALIENTO/RES PIRACION CORTA active Not Available Not Available No t Available oxybutynin chloride 5 mg tablet RICH 1/2 (MEDIA) TABLETA POR LA BOCA JOSHUA VEZ AL RASHID active Not Available Not Available N ot Available fluticasone propionate 50 mcg/actuatio n nasal spray,suspen phuong USAR 1 ROCIADA EN CADA FOSA NASAL JOSHUA VEZ AL RASHID active Not Available Not Available N ot Available clotrimazole 1 % topical cream APLICAR A LA PIEL AL AREA AFECTADA DOS VECES AL RASHID active Not Available Not Available No t Available risperidone 0.5 mg tablet RICH 1 TABLETA POR LA BOCA DOS VECES AL RASHID active Not Available Not Available No t Available risperidone 1 mg disintegrati ng tablet DISOLVER 1 TABLETA POR LA BOCA A LA HORA DE DORMIR active Not Available Not Available No t Available Atrovent HFA 17 mcg/actuatio n aerosol inhaler INHALE 2 PUFFS BY MOUTH THREE TIMES DAILY IN THE MORNING, AT NOON, AND AT BEDTIME active Not Available Not Available N ot Available mometasone 0.1 % topical solution APLICAR SACHIN GOTAS A LA PIEL DEL AREA AFECTADA CADA RASHID active Not Available Not Available No t Available calcium 500 mg (as carbonate)-v itamin D3 10 mcg (400 unit) tablet active Not Available Not Available Not Available levocetirizi ne 5 mg tablet RICH 1 TABLETA POR LA BOCA CADA RASHID EN LA NOCHE active Not Available Not Available No t Available Fiber (calcium polycarbophi l) 625 mg tablet RICH 1 TABLETA POR LA BOCA CADA MANANA active Not Available Not Available Not Available diclofenac 1 % topical gel APLICAR 2 GM TOPICALMENT E EN EL AREA AFECTADA DOS VECES AL RASHID active Not Available Not Available No t Available cholecalcife rol (vitamin D3) 50 mcg (2,000 unit) capsule RICH 1 CAPSULA POR LA BOCA CADA RASHID active Not Available Not Available No t Available Mucus Relief ER 600 mg tablet, extended release TAKE 1 TABLET BY MOUTH TWICE DAILY FOR 7 DAYS DO NOT BREAK, CRUSH, DISSOLVE OR CHEW active Not Available Not Available No t Available Adults 50 Plus 0.4 mg-300 mcg-250 mcg tablet active Not Available Not Available Not Available Vitals Date Recorded Body weight Body temperature Body height Heart rate Oxygen saturation Oxygen saturation in Arterial blood by Pulse oximetry Respiratory rate Systolic blood pressure Diastolic blood pressure Provider Name and Address Organization Details Last Updated DateTime 3 90451.0 72 g 98.2 [degF] 170.18 cm 76 /min 97 % 97 % 16 /min 109 mm[Hg] 64 mm[Hg] Not Available [facility] 3 11:25:40 Date Recorded Respiratory rate Heart rate Body weight Body temperature Oxygen saturation Oxygen saturation in Arterial blood by Pulse oximetry Systolic blood pressure Diastolic blood pressure Provider Name and Address Organization Details Last Updated DateTime 4 18 /min 86 /min 22638.6 4 g 98.9 [degF] 99 % 99 % 104 mm[Hg] 58 mm[Hg] Not Available [facility] 4 12:05:09 Date Recorded Oxygen saturation Oxygen saturation in Arterial blood by Pulse oximetry Respiratory rate Body temperature Heart rate Systolic blood pressure Diastolic blood pressure Provider Name and Address Organization Details Last Updated DateTime 4 97 % 97 % 18 /min 97.9 [degF] 65 /min 132 mm[Hg] 58 mm[Hg] Not Available [facility] 4 12:22:32 Date Recorded Body temperature Oxygen saturation Oxygen saturation in Arterial blood by Pulse oximetry Body weight Heart rate Respiratory rate Systolic blood pressure Diastolic blood pressure Provider Name and Address Organization Details Last Updated DateTime 3 96.6 [degF] 98 % 98 % 89182.6 g 80 /min 14 /min 117 mm[Hg] 63 mm[Hg] Not Available [facility] 3 11:07:06 Social History None recorded. Functional Status None recorded. Mental Status None recorded. Family History Nothing Reported. Medical History No medical history recorded. Past Encounters Encounter ID Performer Location Encounter Start Date Encounter Closed Date Diagnosis/Indication Diagnosis SNOMED-CT Code Diagnosis ICD10 Code Diagnosis Note [id number] Nikky Beckett MD [facility] [address] [place] [phone] 02/04/2023 11:07:03 02/07/2023 12:12:08 Viral upper respiratory tract infection 412529562 J06.9 [id number] Nikky Beckett MD [facility] [address] [place] [phone] 05/13/2023 11:25:31 05/16/2023 12:04:12 Urinary symptoms 393598433 R39.9 [id number] Alex José MD [facility] [address] [place] [phone] 11/18/2023 12:05:06 11/21/2023 17:19:55 Viral upper respiratory tract infection 117572376 J06.9 [id number] BEL GAINES MD [facility] [address] [place] [phone] 03/01/2024 12:22:30 03/01/2024 18:27:19 Respiratory tract congestion and cough 662408816 R05.9 Evaluation in the field was performed by my senior sales engineer colleague, as noted above, I provided real-time direction and supervisio n for this visit. The evaluation revealed 83 yr old male Maldivian speaking, PMH dementia but can express himself / HTN/ with c/o URI symptoms for a couple of weeks. Pt reports a cough, congested, and yellow sputum. Also reports sore throat but denies SOB, chills, fever, myalgia. Pt report nausea but no vomiting. He can eat and drink. He has not taken anything OTC. Denies Hx of COPD/Asthm a /HF VSS: RR 18, SpO2 97 %, afebrile Exam with clear lungs, no MEREDITH, ongoing cough with yellow thick sputum Covid / Flu and rapid strep negative . Impression :URI with cough Plan:-Azit hromycin x5 days - first dose given by the senior sales engineer- Flonase nasal to help with postnasal drip sent to his pharmacy-M ucinex BID to help loosen up the secretions -Advised to drink plenty of fluids-Gar gle with sale tand water, tea with honey-Red flags discussed with the patient Primary care, consider__ _ Dispositio n: We discussed the diagnostic uncertaint y of home visits and the risk associated with this. In this case, the patient and I felt this to be an acceptable and reasonable amount of risk given the benefit of avoiding an ED visit. We discussed the need to seek care urgently/e mergently in the setting of any new or worsening serious symptoms, particular ly fever, chills, SOB, CP, vomiting, diarrhea , weakness or any other concerns. Health Concerns Section Related Observation LastModified by Organization Detai ls LastModified Time None Recorded Concern Status LastModified by Organization Details LastModified Time None Recorded Advance Directives Directive None Recorded Payers Encounter Date Sequence Insurance Name Policy Number Policy Clayton Covered Member ID Clayton Member ID Guarantor Name 02/04/2023 1 [facility] - DOS PRIOR TO 2023 - DUAL ELIGIBLE (MEDICARE REPLACEMENT/ADV ANTAGE - HMO) Gray Sahu [id number] Gray Sahu 05/13/2023 1 [facility] - DOS ON OR AFTER 2023 - DUAL ELIGIBLE - FDC OPTIONS AND ONE CARE (MEDICARE REPLACEMENT/ADV ANTAGE - HMO) Gray Sahu [id number] Gray Sahu 11/18/2023 1 [facility] - DOS ON OR AFTER 2023 - DUAL ELIGIBLE - FDC OPTIONS AND ONE CARE (MEDICARE REPLACEMENT/ADV ANTAGE - HMO) Gray Luis Alberto [id number] Gray Luis Alberto 03/01/2024 1 [facility] [place] - DOS ON OR AFTER 2023 - DUAL ELIGIBLE - FDC OPTIONS AND ONE CARE (MEDICARE REPLACEMENT/ADV ANTAGE - HMO) Gray Luis Alberto [id number] Gray Luis Alberto Notes Date Note Type Note Provider Name and Address Organization Details Recorded Time 02/04/2023 text/html HPI: Dry Cough,body ache, slight fever ................... ................... ................... ................... ................... ................... ................... ........ [facility] Nursing Assessment: Patient Reports: Cough, fever greater than 2 days Chief Complaints: Cough PMH: Severe Dementia Allergies: No Known Comments: Daughter calling on behalf of member with request for [facility] visit for eval of cough and body aches x 2 days deny fevers attempt OTC's with fair effect Verify member name/- Nikky Beckett MD [address] [place] [address],[address], [place], [phone], [facility] 02/04/2023 11:10:11 05/13/2023 text/html HPI: HX: BPH, COPD, CAD, CKD. Patient reports to Daughter that he feels unwell. Painful urination x 1 week. No blood or pus with good water intake. No fever. Daughter reports patient picks and chooses what meds he takes. Please address use and availability of flomax as ordered ................... ................... ................... ................... ................... ................... ................... ........ CRC Nursing Assessment: Comments: CRC RN did not require any additional information to process this visit. ................... ................... ................... ................... ................... ................... ................... ........ Director Of Counseling Note From Jerry Yeung: Mobile health call for male patient with burning on urination . Arrived to home where patient was found with ELECTRIC POWERLINE EXAMINER. Pt presents alert and oriented , ambulating well without difficulty. Pt reports approximatelv 2 weeks of burning with urination, in addition to some urgency. ELECTRIC POWERLINE EXAMINER stated that patient has been refusing to take his medications sometimes and with his bipolar disorder they have had to pick their battles with him. At time of assessment pt still had not taken his morning medications. Spoke with pt's daughter by phone who confirmed information provided during assessment. Vital signs taken as listed, and unconcerning. Pt afebrile. Pt was able to provide urine specimen. Urine dip analysis in the home suggests some protein in urine in addition to possibly trace amounts of blood . Picture taken and uploaded to [facility] physician for review . Consulted with Dr Rubens Beckett. [facility] [place] [place] ordered urine culture send out, and reviewed red flags for patient to be seen at ED. Stressed importance of following regimen for prescribed medications . Reviewed red flags with ELECTRIC POWERLINE EXAMINER and pt and informed them they would be contacted with results from urine culture. Patient education provided. [facility] [place] [place] Lab Orders: culture, urine: Performed urinalysis, dipstick: Performed ................... ................... ................... ................... ................... ................... ................... ........ Disposition: Fulfilled Nikky Beckett MD [address] [place] [address],[address], [place], [phone], [facility] 05/13/2023 15:53:31 11/18/2023 text/html This was a supervised home visit with senior sales engineer Cale Melendrez. CRC Nurse Triage Notes (Pearl Peterson): Reason For Request: Pt's daughter reporting diarrhea, NO fever, confusion, lots of coughing>able to spit up the phlegm>no chest pain or SOB to report>was given nyquil last night. Chief Complaints: Cough, URI PMH: Severe Dementia, Heart Disease, Hypertension, COPD/Asthma Allergies: No Known Comments: Verified / address Member has had loose stool since yesterday. Member does have dementia but has new episodes of confusion. Member does not want to eat today, has not taken his medication today. Member is coughing up congestion , unsure the color. Member was given nyquil last evening. Member is not having sob/ chest pain . ................... ................... ................... ................... ................... ................... ................... ........ Director Of Counseling Note From Cale Melendrez: Pt co diarrhea and cough with white sputum, that started this morning. NyQuil given for cough with relief. Pt denies nausea vomiting fever or headache or abdominal pain. Pt loss of appetite but able to eat and fluid intake. Covid flu swab negative. Baseline vitals assessed. [facility] contacted and advised self care and monitor symptoms. Family education on signs indicating the ER. ................... ................... ................... ................... ................... ................... ................... ........ Disposition: Fulfilled Alex José MD [address] [place] [address],[address], [place], [phone], [facility] 11/18/2023 12:26:21 03/01/2024 text/html CRC Nurse Triage Notes (Pearl Peterson): Reason For Request: Pt's daughter reporting throat pain>cough>difficul ty swallowing>congesti on>symptoms going on at least a few weeks Chief Complaints: URI PMH: Severe Dementia, Heart Disease, Hypertension, COPD/Asthma Allergies: No Known Comments: The radio script writer verified the member's name//address, and phone number. The member is a a 83 yr old male kenyan speaking , PMH dementia but can express himself / HTN/ Member calling with c/o URI symptoms for a couple of weeks. Member has had a cough, congested, and yellow sputum. Member has chills not fever. The member has pain in his throat but denies any body aches. He has nausea but no vomiting. He can eat and drink. He has not taken anything OTC. Member denies any sob Education was provided on the response time and the member was advised to monitor reported s/s and seek emergency treatment if needed ................... ................... ................... ................... ................... ................... ................... ........ Director Of Counseling Note From Saurav Bermeo: Dispatched to above address for [facility]. On arrival patient 83 y/o M found sitting on bed, AOX2 per baseline dementia, airway patent, speaking in full sentences, good color, in no apparent distress. Patient reports x3 weeks productive cough and sore throat. Patient denies chest pain, difficulty breathing, fever, chills, nausea, vomiting, diarrhea. Patients vital signs checked. Covid-19 Flu and strep test preformed, all negative. Secondary assessment, pupils PERRL, airway patent, no JVD, trachea midline, equal chest rise and fall, lungs clear all [place], abdomen soft non tender, no signs of trauma, good radial pulse, skin pink warm and dry. [facility] [place] contacted, spoke with Dr. Gaines, advised of patient complaints, exam findings and test results. [facility] [place] requests 12 lead EKG be checked. 12 lead EKG showed sinus rhythm with occasional PVCs and PACs. [facility] [place] contacted and advised of results. [facility] [place] requests SC8 administer 500mg Azithromycin PO, will prescribe ongoing ABX therapy and Flonase, recommends follow up with PCP. Patient advised of [facility] [place] recommendations, red flags and prescriptions with home care advise. Patient has no additional questions or concerns at this time. SC8 clear. EOR. ................... ................... ................... ................... ................... ................... ................... ........ Disposition: Fulfilled BEL GAINES MD [address] [place] [address],[address], [place], [id number], СЕРГЕЙ - [employer]IE AJ 03/01/2024 13:48:41
[2024-12-28 11:03] LABS: MANUAL DIFF FLAG NO
[2024-12-28 11:11] LABS: Basophils Percent Auto 0.5 % (0-2); Eosinophils Absolute Auto 0.6 X10*3/uL (0.0-0.4); Eosinophils Percent Auto 7.7 % (0-4); Hematocrit 35.3 % (42.0-52.0); Hemoglobin 11.9 g/dl (14.0-18.0); Imm Gran Abs Auto 0.02 X10*3/uL (0.00-0.03); Imm Gran Pct Auto 0.2 % (0.0-0.4); Lymphocytes Absolute Auto 1.5 X10*3/uL (1.2-4.9); Lymphocytes Percent Auto 18.3 % (20-40); Mean Corpuscular HGB Conc 33.7 g/dl (31.0-36.0); Mean Corpuscular Hemoglobin 32.5 pg (27.0-33.0); Mean Corpuscular Volume 96.4 fL (80.0-98.0); Mean Platelet Volume 10.6 fL (9.4-12.4); Monocytes Absolute Auto 0.7 X10*3/uL (0.1-1.2); Monocytes Percent Auto 8.3 % (2-11); Neutrophils Absolute Auto 5.3 x10*3/uL (2.0-8.3); Platelet Count 261 X10*3/uL (160-400); Red Blood Count 3.66 X10*6/uL (4.60-5.80); Red Cell Distribution Width 12.8 % (11.0-16.0); White Blood Count 8.2 X10*3/uL (4.8-10.8)
[2024-12-28 11:21] LABS: Estimated Average Glucose 103 mg/dL; Hemoglobin A1C 105.0627 umol/L; Hemoglobin A1c % 5.2 % (<6.0); Total Hemoglobin (HGBA1C) 3128.8267 umol/L
[2024-12-28 11:39] LABS: Alanine Aminotransferase 14 U/L (0-40); Albumin Level 4.1 g/dL (3.5-5.0); Alkaline Phosphatase 66 U/L (39-117); Anion Gap 11 (12-20); Aspartate Amino Transferase 20 U/L (5-37); Bilirubin Total 0.4 mg/dL (0.0-1.0); Blood Urea Nitrogen 34 mg/dL (9-16); Carbon Dioxide 28 mmol/L (22-29); Chloride 104 mmol/L (96-108); Cholesterol 119 mg/dL (<200); Estimated Glomerular Filt Rate 42; Glucose Random 81 mg/dL (60-115); HDL Cholesterol 45 mg/dL (>40); LDL Cholesterol Calculated 56 mg/dL (<100); Potassium 4.2 mmol/L (3.3-5.1); Sodium 139 mmol/L (135-145); Total Protein 8.2 g/dL (6.5-8.0); Triglycerides 94 mg/dL (<150)
[2024-12-28 11:40] LABS: TSH reflex Free T4 4.56 uIU/mL (0.32-4.0)
[2024-12-28 12:00] LABS: Folate 13.5 ng/mL (> or = 4.0); Vitamin B12 525 pg/mL (200-900)
[2024-12-28 12:15] LABS: Free T4 (Free Thyroxine) 0.99 ng/dL (0.71-1.85)
== END 2024-12-28 09:54 | disposition home or self-care (01) ==
LOC: HO.HHCL 09:53
PROVIDERS: Visit Provider Internal Medicine
DX: Z13.1 Encounter for screening for diabetes mellitus (principal); Z13.6 Encounter for screening for cardiovascular disorders; F03.918 Unspecified dementia, unspecified severity, with other behavioral disturbance
CPT/HCPCS: 36415; 80053; 80061; 82607; 82746; 83036; 84439; 84443; 85025